=== PATIENT | female | born 1950 | race Caucasian/White ===

== ENCOUNTER 2020-10-22 07:44 | Outpatient (CLI) | payer MEDICARE, OTHER, SELFPAY | END 2020-10-22 07:45 | disposition home or self-care (01) | LOC: ANHAUDIO 07:47 | PROVIDERS: Visit Provider Otolaryngology | DX: H81.319 Aural vertigo, unspecified ear (principal) | CPT/HCPCS: 92537; 92540; 92546; 92567 ==